=== PATIENT | male | born 1960 | race Caucasian/White ===

== ENCOUNTER 2018-02-14 13:21 | Emergency (ER) | payer SELFPAY ==
[2018-02-14 13:29] VITALS: BP 142/73; PULSE 57; RESP 16; TEMP 98.1; O2SAT 100
--- NOTE | 2018-02-14 13:51 | RAD ---
PROCEDURE: Right Wrist Radiographs. HISTORY: pain for 2 weeks, no injury COMPARISON: None. FINDINGS: BONES: No acute fracture or destructive bony lesion identified. JOINTS: No subluxation or dislocation appreciable. SOFT TISSUES: Normal. OTHER FINDINGS: None. IMPRESSION: Unremarkable right wrist radiographs.
--- NOTE | 2018-02-14 14:00 | C.PDOC ---
History Of Present Illness 57 year old male presents to the emergency department with complaints of right wrist pain persisting for the past two weeks. Patient reports that he is experiencing a mild, aching pain that is worsened with strenuous movements. Patient reports that he uses his hands frequently for work, and that he is right -hand-dominant. Patient denies direct injury, swelling, numbness, or weakness. Time Seen by Provider: 02/14/18 13:36 Chief Complaint (Nursing): Upper Extremity Problem/Injury History Per: Patient History/Exam Limitations: no limitations Onset/Duration Of Symptoms: Other (two weeks) Current Symptoms Are (Timing): Still Present Quality: Aching, "Pain" Exacerbating Factor(s): Strenuous Use Of Affected Area, Movement Past Medical History Reviewed: Historical Data, Nursing Documentation, Vital Signs Vital Signs: Last Vital Signs Temp 98.1 F 02/14/18 13:27 Pulse 57 L 02/14/18 13:27 Resp 16 02/14/18 13:27 BP 142/73 02/14/18 13:27 Pulse Ox 100 02/14/18 14:04 - Medical History PMH: No Chronic Diseases Surgical History: No Surg Hx Family History: States: No Known Family Hx - Social History Hx Alcohol Use: No Hx Substance Use: No - Immunization History Hx Tetanus Toxoid Vaccination: No Hx Influenza Vaccination: No Hx Pneumococcal Vaccination: No Review Of Systems Musculoskeletal: Positive for: Hand Pain. Negative for: Other (swelling) Neurological: Negative for: Weakness, Numbness Physical Exam - Physical Exam Appears: Non-toxic, No Acute Distress Skin: Normal Color, Warm, Dry, No Other (erythema, tactile warmth) Head: Atraumatic, Normacephalic Eye(s): bilateral: Normal Inspection Neck: Normal ROM Chest: Symmetrical Extremity: Normal ROM, Tenderness (mild tenderness to the radial aspect of the wrist), Other (pain with pronation.) Pulses: Left Radial: Normal, Right Radial: Normal Neurological/Psych: Oriented x3, Normal Speech Gait: Steady ED Course And Treatment O2 Sat by Pulse Oximetry: 100 (RA) Pulse Ox Interpretation: Normal Medical Decision Making Medical Decision Making: Plan: Motrin 600mg PO XRay Right Wrist Progress: Xray viewed by me showing no acute fractures Patient declined Motrin as he is fasting Discussed results with patient. Recommend rest ice and analgesics. Patient feels comfortable going home and will be discharged Disposition Counseled Patient/Family Regarding: Need For Followup, Rx Given - Disposition Referrals: Veto Kirkpatrick MD [Staff Provider] - Disposition: HOME/ ROUTINE Disposition Time: 14:00 Condition: GOOD Additional Instructions: Your xray was normal, no fracture. Please apply ice to area 15 minutes three times a day. Take Motrin as needed for pain every 6 hours, with food to not upset stomach. Follow up with orthopedic if pain persists over one week. Prescriptions: Ibuprofen [Motrin] 600 mg PO Q8 #30 tab Instructions: Tendonitis (DC) Forms: [email or web address] (N[place]uan) - POA Present On Arrival: None - Clinical Impression Clinical Impression: Tendonitis - PA / TELEPHONE RECORDER / Resident Statement MD/DO has reviewed & agrees with the documentation as recorded. - Scribe Statement The provider has reviewed the documentation as recorded by the Scribe (Karsten Keenan) All medical record entries made by the Scribe were at my direction and personally dictated by me. I have reviewed the chart and agree that the record accurately reflects my personal performance of the history, physical exam, medical decision making, and the department course for this patient. I have also personally directed, reviewed, and agree with the discharge instructions and disposition.
== END 2018-02-14 14:01 | disposition home or self-care (01) ==
LOC: C.ER 13:21
DX: M77.8 Other enthesopathies, not elsewhere classified (principal)